=== PATIENT | female | born 1965 | race Caucasian/White ===

== ENCOUNTER 2016-11-01 06:16 | Emergency (ER) | payer MEDICAID ==
[~2016-11-01] VITALS: Ht 157.5 cm; Wt 71.8 kg
[2016-11-01 09:06] VITALS: BP 150/97
[2016-11-01] MEDS ORDERED: DICYCLOMINE HCL 10MG CAPSULE PO ONE (09:45)
[2016-11-01] MEDS ORDERED: SODIUM CHLORIDE 0.9% 1,000 ML IV ONE (09:45)
[2016-11-01] MEDS ORDERED: ACETAMINOPHEN 500MG TABLET PO ONE (09:45)
[2016-11-01] MEDS ORDERED: ONDANSETRON 4MG ODT PO ONE (09:45)
== END 2016-11-01 10:25 | disposition left against medical advice (07) ==
LOC: ER 06:21
DX: R19.7 Diarrhea, unspecified (principal); R50.9 Fever, unspecified; R11.0 Nausea; F17.210 Nicotine dependence, cigarettes, uncomplicated
CPT/HCPCS: 81025; 99282; Z7610; J7030; Q0162

== ENCOUNTER 2016-11-03 21:52 | Emergency (ER) | payer MEDICAID ==
[~2016-11-03] VITALS: Ht 157.5 cm; Wt 72.0 kg
[2016-11-03 21:57] VITALS: BP 154/81
== END 2016-11-03 23:30 | disposition left against medical advice (07) ==
LOC: ER 21:52
DX: R50.9 Fever, unspecified (principal); Z53.21 Procedure and treatment not carried out due to patient leaving prior to being seen by health care provider

== ENCOUNTER 2022-11-25 17:38 | Emergency (ER) | payer BC, MEDICAID ==
[~2022-11-25] VITALS: Ht 157.5 cm; Wt 76.0 kg
[2022-11-25 17:47] VITALS: BP 186/92; PULSE 84; RESP 18; TEMP 98.6; O2SAT 100
[2022-11-25 19:39] LABS: BASOPHILS % 0.3 % (0.0-2.0); EOSINOPHILS % 1.1 % (0.0-5.0); HEMOGLOBIN. 13.3 g/dL (12.0-16.0); LYMPHOCYTES % 28.6 % (20.0-50.0); MEAN CORPUSCULAR HEMOGLOBIN 27.9 pg (28.0-32.0); MEAN CORPUSCULAR HGB CONC 33.2 g/dL (31.0-37.0); MEAN CORPUSCULAR VOLUME 84.1 fL (81.0-99.0); MEAN PLATELET VOLUME 8.7 fl (7.4-10.4); MONOCYTES % 6.9 % (2.0-8.0); NEUTROPHILS % 63.1 % (40.0-76.0); PLATELET 251 x1000/uL (130-400); RED BLOOD CELL COUNT 4.75 mill/uL (4.2-5.4); RED CELL DISTRIBUTION WIDTH 13.9 % (11.6-14.6)
[2022-11-25 19:46] LABS: CHLORIDE 110 mEq/L (98-107); INDEX HEMOLYSI 1 (1-3); INDEX ICTERIC 1 (1-4); INDEX LIPEMIC 1 (1-3); SODIUM 139 mEq/L (136-145)
[2022-11-25 19:51] LABS: INR 0.9; PROTHROMBIN TIME 10.2 sec (9.6-11.0)
[2022-11-25 20:00] LABS: ALANINE AMINOTRANSFERASE 47 IU/L (13-61); ALBUMIN 3.5 g/dL (3.4-5.0); ASPARTATE AMINOTRANSFERASE 24 IU/L (15-37); BILIRUBIN TOTAL 0.4 mg/dL (0.1-1.0); CALCIUM 9.5 mg/dL (8.5-10.1); CARBON DIOXIDE 28 mEq/L (21-32); CREATININE 0.7 mg/dL (0.6-1.3); GLUCOSE 126 mg/dL (70-105); PROTEIN TOTAL 7.5 g/dL (6.0-8.3); TROPONIN I HIGH SENSITIVITY 4 ng/L (<54); UREA NITROGEN BLOOD 10 mg/dL (7-21)
== END 2022-11-25 20:58 | disposition home or self-care (01) ==
LOC: ER 18:10
DX: R07.89 Other chest pain (principal); I10 Essential (primary) hypertension; F12.10 Cannabis abuse, uncomplicated
CPT/HCPCS: 36415; 71045; 80053; 84484; 85025; 93005; 99285